=== PATIENT | male | born 1965 | race Caucasian/White ===

== ENCOUNTER 2021-07-27 09:18 | Emergency (ER) | payer OTHER ==
[2021-07-27 09:39] VITALS: BP 130/78; PULSE 80; TEMP 97.8; BMI 28.3
[2021-07-27] MEDS ORDERED: KETOROLAC TROMETHAMINE 60 MG/2 ML VIAL IM ONE (10:40)
[2021-07-27] MEDS ORDERED: DIPHTH,PERTUSS(ACELL),TET 0.5 ML DISP.SYRIN IM ONE ×2 (10:42→11:12)
[2021-07-27] MEDS ORDERED: KETOROLAC TROMETHAMINE 15 MG/ML VIAL ONE (11:12)
== END 2021-07-27 13:24 | disposition home or self-care (01) ==
LOC: JER 09:18
PROC: 3E0234Z Introduction of Serum, Toxoid and Vaccine into Muscle, Percutaneous Approach (ICD-10-PCS; principal; 2021-07-27)
PROC: 3E0233Z Introduction of Anti-inflammatory into Muscle, Percutaneous Approach (ICD-10-PCS; 2021-07-27)
DX: M79.601 Pain in right arm (principal); V89.2XXA Person injured in unspecified motor-vehicle accident, traffic, initial encounter
CPT/HCPCS: 72040-TC; 72100-TC-FY; 73030-TC-RT-FY; 73523-TC-FY; 73590-TC-RT-FY; 90715; 99285-25